=== PATIENT | female | born 1975 | race Caucasian/White ===

== ENCOUNTER 2017-02-16 13:32 | Day surgery (SDC) | payer BC, OTHER ==
[2017-02-15 15:43] VITALS: BMI 32.5
[2017-02-16] MEDS ORDERED: MIDAZOLAM HCL 2 MG/2 ML SINGLE DOSE VIAL ONE (15:48)
[2017-02-16] MEDS ORDERED: PROPOFOL 20 ML ONE ×2 (15:53→15:56)
[2017-02-16] MEDS ORDERED: oxyCODONE HCL 5 MG TABLET PO PRN (16:13)
[2017-02-16] MEDS ORDERED: ONDANSETRON 4 MG/2 ML VIAL IVPUSH PRN (16:13)
[2017-02-16] MEDS ORDERED: LACTATED RINGERS SOLUTION 1,000 ML IV SCH (16:15)
--- NOTE | 2017-02-16 16:38 | HP ---
Past Medical History - Primary Care Physician PCP:: Brandan Soriano - Admission Chief Complaint: 42yo female wit menometrorrhagia admitted for D&C. History of Present Illness: Pt has been bleeding every 2 weeks for the last several months. She has obesity that puts her at risk of endometrial neoplasia. 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: Alzheimer's, CVA, Dementia, Migraine, Multiple Sclerosis, Peripheral Neuropathy, Parkinson's, Seizure, Syncope, TIA, Vertigo, Other Cardiovascular: No: AFIB, Aneurysm, Aortic Insufficiency, Aortic Stenosis, CAD, CHF, Deep Vein Thrombosis, HTN, Hyperlipdemia, NV, Mitral Insufficiency, Mitral Stenosis, Murmur, Pulmonary Hypertension, Other Pulmonary: No: Asthma, Bronchitis, Cancer, COPD, O2 Dependent, Pneumonia, Previously Intubated, Pulmonary Embolus, Pulmonary Fibrosis, Sleep Apnea, Other Gastrointestinal: No: Ascites, Cancer, Constipation, Crohn's Disease, Diverticulitis, Diverticulosis, Esophageal Varices, Gastritis, GERD, GI Bleed, Hemorrhoids, Hiatal Hernia, Inflamatory Bowel Disease, Irritable Bowel Disease, Pancreatitis, Peptic Ulcer Disease, Ulcerative Colitis, Other Hepatobiliary: No: Cirrhosis, Cholelithiasis, Cholecystitis, Choledocholithiasis , Hepatitis A, Hepatitis B, Hepatitis C, Other Renal/: No: Renal Failure, Renal Inusuff, BPH, Cancer, Hematuria, Hemodialysis , Neurogenic Bladder, Renal Calculi, UTI, Other Reproductive: No: Ectopic , Endometriosis, Fibroids, PID, Polycystic Ovary Syndrome, Postmenopausal, Other Heme/Onc: No: Anemia, B12 Deficiency, Bleeding Disorder, Cancer, Current Chemotherapy, Current Radiation Therapy, Hemochromatosis, Hypercoaguable State, Myeloproliferative Synd, Sickle Cell Disease, Sickle Cell Trait, Thrombocytopenia, Other Infectious Disease: No: AIDS, C-Diff, Herpes Zoster, HIV, MRSA, STD's, Tuberculosis, VREF, Other Psych: No: Addictions, Anxiety, Bipolar, Depression, Panic, Psychosis, Schizophrenia, Other Musculoskeletal: No: Bursitis, Chronic low back pain, Hemiparesis, Hemiplegia, Osteoarthritis, Paraplegia, Other Rheumatology: No: Fibromyalgia, Gout, Lupus, Rheumatoid Arthritis, Sarcoidosis, Vasculitis, Other ENT: No: Allergic Rhinitis, Sinusitis, Other Endocrine: No: [place]'s Disease, Casie's Disease, Diabetes Insipidus, Diabetes Mellitus, Hyperparathyroidism, Hyperthyroidism, Hypothyroidism, Osteopenia, SIADH, Other Dermatology: No: Basal Cell, Cellulitis, Eczema, Melanoma, Psoriasis, Squamous Cell, Other - Past Surgical History Past Surgical History: Yes: Bariatric Surgery (Lab Band) Hx Myomectomy: No Hx Transabdominal Cerclage: No - Smoking History Smoking history: Former smoker Have you smoked in the past 12 months: No If you are a former smoker, when did you quit?: 5YRS AGO - Alcohol/Substance Use Hx Alcohol Use: Yes (SOCIALLY) - Social History Usual Living Arrangement: Yes: With Spouse, With Child ADL: Independent History of Recent Travel: No Home Medications - Allergies Allergies/Adverse Reactions: Allergies Allergy/AdvReac Type Severity Reaction Status Date / Time apple [Apple] Allergy Mild "ITCHY" Verified 02/15/17 15:47 plum [[place]] Allergy Mild "ITCHY" Verified 02/15/17 15:47 No Known Drug Allergies Allergy Verified 02/15/17 15:44 - Home Medications Home Medications: Ambulatory Orders Lisinopril [Prinivil] 10 mg PO DAILY 09/25/13 Pantoprazole Sodium [Protonix] 40 mg PO BID #0 tablet. 09/26/13 Family Disease History - Family Disease History Family History: Unremarkable Review of Systems Findings/Remarks: NAD - Review of Systems Constitutional: reports: No Symptoms Eyes: reports: No Symptoms HENT: reports: No Symptoms Neck: reports: No Symptoms Cardiovascular: reports: No Symptoms Respiratory: reports: No Symptoms Gastrointestinal: reports: No Symptoms Genitourinary: reports: Vaginal Bleeding (Heavy) Breasts: reports: No Symptoms Reported Musculoskeletal: reports: No Symptoms Integumentary: reports: No Symptoms Neurological: reports: No Symptoms Endocrine: reports: No Symptoms Hematology/Lymphatic: reports: No Symptoms Psychiatric: reports: No Symptoms Pain Intensity: 0 Physical Exam-FOOD SERVICE Vital Signs: Vital Signs Temperature 98.1 F 02/16/17 13:55 Pulse Rate 80 02/16/17 13:55 Respiratory Rate 20 02/16/17 13:55 Blood Pressure 147/88 02/16/17 13:55 O2 Sat by Pulse Oximetry (%) Constitutional: Yes: No Distress, Calm, Obese Eyes: Yes: WNL, Conjunctiva Clear, EOM Intact HENT: Yes: WNL, Atraumatic, Normocephalic Neck: Yes: WNL, Supple, Trachea Midline Cardiovascular: Yes: WNL, Regular Rate and Rhythm Respiratory: Yes: WNL, Regular, CTA Bilaterally Gastrointestinal: Yes: Normal Bowel Sounds, Soft, Abdomen, Obese ...Rectal Exam: Yes: Deferred Renal/: Yes: WNL Internal Exam Deferred: No Vaginal Exam: Yes: Bleeding Cervix: Yes: Normal Uterus: Yes: Normal, Freely Moveable Adnexa: Normal: Left, Right Musculoskeletal: Yes: WNL Extremities: Yes: WNL Edema: No Integumentary: Yes: WNL Neurological: Yes: WNL, Alert, Oriented ...Motor Strength: WNL Psychiatric: Yes: WNL, Alert, Oriented Imaging - Results Ultrasound: Report Reviewed Assessment/Plan 42yo female with menometrorrhagia admitted for D&C. We had a long discussion about the risks, benefits, and alternatives of surgery. I explained the risks of infection, bleeding, scarring, amenorrhea, Asherman's syndrome, infertility, perforation, need for additional surgery to treat any complications, etc. The pt declined expectant management, office EMB, medical tx options. She prefers D& C as diagnostic and therapeutic procedure. She requested to proceed with surgery.
--- NOTE | 2017-02-16 16:47 | OP ---
Operative Note - Note: Operative Date: 02/16/17 Pre-Operative Diagnosis: Menometrorrhagia, Obesity Operation: D&C, suction Findings: Slightly enlarged uterus. No pelvic or adnexal masses. Post-Operative Diagnosis: Same as Pre-op Surgeon: Brandan Soriano Anesthesiologist/LEAD INVESTIGATOR: Vivi Hernández MD Anesthesia: General Specimens Removed: Endometrial curettings Estimated Blood Loss (mls): 20 Blood Volume Replaced (mls): 0 Fluid Volume Replaced (mls): 400 Operative Report Dictated: Yes
[2017-02-16 17:14] VITALS: TEMP 98.2
[2017-02-16 18:12] VITALS: BP 142/92; PULSE 82
--- NOTE | 2017-02-17 15:46 | OP ---
DATE OF OPERATION: 02/16/2017 PREOPERATIVE DIAGNOSES: Menometrorrhagia and obesity. POSTOPERATIVE DIAGNOSES: Menometrorrhagia and obesity. PROCEDURE: Dilatation and curettage and suction curettage. SURGEON: Brandan Soriano MD ANESTHESIOLOGIST: Vivi Hernández MD ANESTHESIA: General. COMPLICATIONS: None. PATHOLOGY: Endometrial curettings. INTRAVENOUS FLUIDS: 400 mL of crystalloids. ESTIMATED BLOOD LOSS: 20 mL FINDINGS: Examination under anesthesia revealed an anteverted uterus with no pelvic or adnexal masses. The uterus appeared to be slightly enlarged. It was freely mobile within the pelvis. D&C revealed a normal uterine cavity. Procedure completed without complications. DESCRIPTION OF PROCEDURE: The patient was met preoperatively. Risks, benefits, and alternatives of surgery were discussed in details. All questions were answered. The patient was brought to the OR with the IV running. She was placed on the surgical table in the supine position. The anesthesia was achieved without difficulty. The patient was then placed in a dorsal lithotomy position using adjustable Teja stirrups. She was prepped and draped in the usual sterile fashion. A timeout procedure was conducted as per standard protocol. A sterile speculum was then introduced inside the vagina with good visualization of the cervix. The cervix was grasped with a single-tooth tenaculum. No cervical dilation was necessary. The cervical os was parous and admitted a sharp curette without difficulty. A sharp curettage was performed, and the tissue was sent to Pathology for evaluation. A suction curettage was then also performed to remove all of the tissue from the uterus. Once this was completed, good hemostasis was noted. All of the instruments were removed from the patient. Once again, good hemostasis was confirmed. Sponge, lap, and instrument counts were correct. The patient was returned to supine position and transferred to recovery room awake and in stable condition. Sadie [id number]
--- NOTE | 2017-02-18 17:46 | PATH ---
Surgical Pathology Report Patient Name: MANISHA WASHBURN [facility]. Rec. #: [id number] /Age/Gender: 1975 (Age: 42) / F Account: [id number] Location: [facility] SUR[facility]ICAL Taken: 02/16/2017 Received: 02/17/2017 Reported: 02/18/2017 Physicians: Brandan Soriano M.D. Specimen(s) Received ENDOMETRIAL CURETTINGS Clinical History Excessive and frequent menstruation Final Diagnosis ENDOMETRIAL CURETTINGS, DILATATION AND CURETTAGE: FRAGMENTS OF ENDOMETRIUM WITH GLANDULAR AND STROMAL BREAKDOWN, SUPERFICIAL MYOMETRIUM, AND BENIGN CERVICAL TISSUE. Electronically Signed Susanna Parnell M.D. Gross Description Received in formalin labeled "endometrial curettings," is a 4.5 x 3.2 x 0.5 cm aggregate of green-brown soft tissue fragments. The formalin is filtered and the specimen is entirely submitted in 3 cassettes. 02/17/201702/17/2017
== END 2017-02-16 18:00 | disposition home or self-care (01) ==
LOC: JASU-SURG 13:32
PROVIDERS: ATTEND Obstetrics & Gynecology
PROC: 0UDB7ZX Extraction of Endometrium, Via Natural or Artificial Opening, Diagnostic (ICD-10-PCS; principal; 2017-02-16 15:00)
DX: N92.1 Excessive and frequent menstruation with irregular cycle (principal); E66.9 Obesity, unspecified
CPT/HCPCS: 88305-TC; 94760